=== PATIENT | female | born 1960 | race Caucasian/White ===

== ENCOUNTER 2018-10-25 11:10 | Day surgery (SDC) | payer OTHER ==
[~2018-10-25] VITALS: Ht 160 cm; Wt 71.9 kg
[2018-10-25 12:25] VITALS: Ht 160 cm; Wt 71.9 kg
[2018-10-25] MEDS ORDERED: ATOR40TA68 PO (12:26)
[2018-10-25 13:39] VITALS: BP 128/68; PULSE 64; RESP 18
[2018-10-25 14:12] VITALS: BP 117/63; PULSE 62; RESP 20
[2018-10-25 14:30] VITALS: BP 112/65; PULSE 66; RESP 21
[2018-10-25 14:35] VITALS: BP 112/67; PULSE 66; RESP 21
[2018-10-25] MEDS ORDERED: MIDAZOLAM 1 MG/ML 2 ML INJ ONE ×2 (17:09)
[2018-10-25] MEDS ORDERED: FENTAnyl 50 MCG/ML VIAL ONE (17:09)
== END 2018-10-25 17:19 | disposition home or self-care (01) ==
LOC: GIL 11:10
PROVIDERS: ATTEND Internal Medicine Gastroenterology
DX: Z12.11 Encounter for screening for malignant neoplasm of colon (principal); K64.8 Other hemorrhoids
CPT/HCPCS: 45378; J2250; J3010